=== PATIENT | female | born 1980 | race Native Hawaiian/Other Pacific Islander ===

== ENCOUNTER 2017-01-08 11:48 | Emergency (ER) | payer MEDICAID ==
[2017-01-08 11:57] VITALS: BP 115/70; PULSE 101; RESP 16; TEMP 98.1; O2SAT 94
[2017-01-08] MEDS ORDERED: ALBUTEROL INH PREPACK MDI TAKEHOME ONE (12:12)
--- NOTE | 2017-01-08 12:12 | UCPHY ---
H & P Patient Type: Established Chief Complaint Nursing Narrative: 7 days of cough, congestion; aches Time Seen by Provider: 01/08/17 12:00 HPI/ROS: Chief complaint: Fever chills body aches and cough HPI: Patient has been experiencing cough which has been nonproductive, fevers and chills for the last 7 days. No nausea or vomiting. Has not checked her temperature at home. Does improve with some ibuprofen. No abdominal pain. No chest pain. Does not have any medical problems. Is up-to-date on her medications. States she did have bronchitis year ago in use inhaler this morning which seemed to improve after coughing fit. ROS: 10 point Review of Systems is negative except as noted in the HPI. Physical exam: Gen: Awake, Alert, No Distress HEENT: Ears: Bilateral TMs are normal, no erythema or bulging. External auditory canals are clear. Nose: no rhinorrhea Eyes: PERRLA, EOMI Mouth: Moist mucosa Neck: Supple, no JVD Chest: nontender, lungs clear to auscultation Heart: S1, S2 normal, no murmur Abd: Soft, non-tender, no guarding Back: no CVA tenderness, no midline tenderness Ext: no edema, non-tender Skin: no rash Neuro: CN II-XII intact, Sensation grossly intact, Strength 5/5 in bilateral upper and lower extremities - Personal History LMP (Females 10-55): Over 28 Days Ago Current Tetanus/Diphtheria Vaccine: Yes - Medical/Surgical History Hx Diabetes: Yes Other PMH: Appy. GB. Knee - Family History Significant Family History: No pertinent family hx - Social History Smoking Status: Never smoked Constitutional: Initial Vital Signs Temperature (C) 36.7 C 01/08/17 11:51 Heart Rate 101 H 01/08/17 11:51 Respiratory Rate 16 01/08/17 11:51 Blood Pressure 115/70 01/08/17 11:51 O2 Sat (%) 94 01/08/17 11:51 O2 Delivery Mode Room Air Allergies/Adverse Reactions: No Known Allergies Allergy (Verified 01/08/17 11:57) Home Medications: Medication Instructions Recorded NK [No Known Home Meds] 01/08/17 Medical Decision Making ED Course/Re-evaluation: Patient was symptoms of consistent with a viral upper respiratory infection. She has no physical exam findings suggestive of a focal bacterial infection. She is not asthmatic. She is having a little bit of wheezing with forced expiration. Will give her albuterol MDI to go for symptomatic relief. She will follow up with primary care physician in about 3 or 4 days if symptoms are not improving. No indications for antibiotics at this time. Departure - Departure Disposition: Home, Routine, Self-Care Clinical Impression: Viral bronchitis Condition: Good Instructions: Acute Bronchitis (ED) Additional Instructions: You may use the inhaler 2 puffs every 4 hours as needed for wheezing or cough. Follow up with her primary care physician in 3-4 days if symptoms are not improving. You may take ibuprofen and acetaminophen for fevers, chills, aches, or pains. Referrals: [facility],. [Primary Care Provider] - As per Instructions - PQRS PQRS Measurement: NA
== END 2017-01-08 12:32 | disposition home or self-care (01) ==
LOC: CED 11:48
DX: J20.8 Acute bronchitis due to other specified organisms (principal)
CPT/HCPCS: G0463-PO